=== PATIENT | male | born 1945 ===

== ENCOUNTER → 2016-11-18 | Outpatient (CLI) | payer OTHER | LOC: FCPNEURO 21:00 | PROVIDERS: ATTEND Psychiatry & Neurology Sleep Medicine | DX: G47.33 Obstructive sleep apnea (adult) (pediatric) (principal) ==

== ENCOUNTER → 2016-12-22 | Outpatient (CLI) | payer OTHER | LOC: FIMAGING 13:54 → EDSTATUS 13:54 | PROVIDERS: ATTEND Family Medicine | DX: M16.12 Unilateral primary osteoarthritis, left hip (principal); Z96.641 Presence of right artificial hip joint ==